=== PATIENT | male | born 1950 | race Two or more races ===

== ENCOUNTER 2017-06-21 01:31 | Emergency (ER) | payer MEDICARE, OTHER ==
[~2017-06-21] VITALS: Ht 167.6 cm; Wt 85.3 kg
--- NOTE | 2017-06-21 01:51 | NUR ---
PT PRESENTED TO THE ER WITH A C/O HIGH BLOOD PRESSURE WITH CP X1 HR AGO. PT STATED THAT HE FELT VERY ANXIOUS BECAUSE HIS BP AT HOME WAS VERY HIGH. PT TOOK HIS AMLODAPINE, LISINOPRIL AND CLONADINE. PT'S BP IS 160/60 AND HR IS 77. PT IS ON THE MONITOR AND CONTINUOUS PULSE OX. PT DENIES PAIN AT THIS TIME.
--- NOTE | 2017-06-21 01:54 | NUR ---
EKG DONE AT THE BEDSIDE.
--- NOTE | 2017-06-21 02:10 | NUR ---
PT AMBULATED OUT WITH A STEADY GAIT. VSS.
--- NOTE | 2017-06-21 02:10 | NUR ---
Patient does not wish to proceed with medical care recommended by Dr. NOEL. Patient given information related to possible complications, up to and including , which could occur as a result of leaving the hospital at this time. Patient verbalizes understanding of risks involved due to leaving against medical advice. Patient has signed AMA form. PT REC'D ACI WELL.
[2017-06-21 02:12] VITALS: BP 143/80
== END 2017-06-21 02:09 | disposition home or self-care (01) ==
LOC: ER 01:33
DX: R07.89 Other chest pain (principal); I10 Essential (primary) hypertension; E11.9 Type 2 diabetes mellitus without complications
CPT/HCPCS: 93005; 99283; A4606; Z7610

== ENCOUNTER 2019-01-20 21:36 | Emergency (ER) | payer MEDICARE, MEDICAID ==
[~2019-01-20] VITALS: Ht 167.6 cm; Wt 82.1 kg
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
[2019-01-20] MEDS ORDERED: TDAP [DIPH/PERTUSSIS/TET] 0.5 ML VIAL IM ONE ×2 (22:21→22:30)
[2019-01-20] MEDS ORDERED: IBUPROFEN 400 MG TABLET ONE (22:21)
[2019-01-20] MEDS ORDERED: IBUPROFEN 400 MG TABLET PO ONE (22:30)
--- NOTE | 2019-01-20 22:40 | NUR ---
PT TAKEN TO CT VIA [facility].
--- NOTE | 2019-01-20 22:50 | NUR ---
PT RETURNED FROM RADIOLOGY VIA [facility].
--- NOTE | 2019-01-21 00:24 | NUR ---
CALL MARISOL DE LA TORRE ([facility]) - [phone] PLEASE CALL FOR ANY UPDATES
--- NOTE | 2019-01-21 00:31 | NUR ---
Patient discharged to home in stable condition. Written and verbal after care instructions given. Patient verbalizes understanding of instruction. Pt wheeled out to car on wheelchair
[2019-01-21 00:32] VITALS: BP 151/88
== END 2019-01-21 00:38 | disposition home or self-care (01) ==
LOC: ER 21:40
DX: S16.1XXA Strain of muscle, fascia and tendon at neck level, initial encounter (principal); S46.811A Strain of other muscles, fascia and tendons at shoulder and upper arm level, right arm, initial encounter; S93.491A Sprain of other ligament of right ankle, initial encounter; I10 Essential (primary) hypertension; E11.9 Type 2 diabetes mellitus without complications; V49.49XA Driver injured in collision with other motor vehicles in traffic accident, initial encounter; Y93.89 Activity, other specified; Y92.410 Unspecified street and highway as the place of occurrence of the external cause; Y99.8 Other external cause status
CPT/HCPCS: 71045; 72125; 73030; 73610; 90471; 90715; 99284; A6402; A6403

== ENCOUNTER 2021-02-28 22:31 | Emergency (ER) | payer MEDICARE, OTHER ==
[~2021-02-28] VITALS: Ht 167.6 cm; Wt 81.6 kg
[2021-02-28] MEDS ORDERED: HYDROCODONE/APAP 5/325MG TABLET PO ONE (23:00)
[2021-02-28] MEDS ORDERED: HYDROCODONE/APAP 5/325MG TABLET ONE (23:02)
--- NOTE | 2021-02-28 23:05 | NUR ---
BIBS WITH C/O OF R SHOULDER PAIN. PT ALERT AND ORIENTED X4. PT IS AMBULATORY WITH HYPERTENSION, WITH NON LABORED BREATHING.
[2021-03-01] MEDS ORDERED: IBUP-1957 PO (00:29)
[2021-03-01 00:31] VITALS: BP 135/75
--- NOTE | 2021-03-01 00:32 | NUR ---
Patient discharged to home in stable condition. Written and verbal after care instructions given. Patient verbalizes understanding of instruction and RX. Pt ambulated out of ED. VSS.
== END 2021-03-01 00:33 | disposition home or self-care (01) ==
LOC: ER 22:33
DX: S43.491A Other sprain of right shoulder joint, initial encounter (principal); I10 Essential (primary) hypertension; E11.9 Type 2 diabetes mellitus without complications; Z79.899 Other long term (current) drug therapy; V49.49XA Driver injured in collision with other motor vehicles in traffic accident, initial encounter; Y93.89 Activity, other specified; Y92.488 Other paved roadways as the place of occurrence of the external cause; Y99.8 Other external cause status
CPT/HCPCS: 73030-TC